=== PATIENT | female | born 1960 | race Caucasian/White ===

== ENCOUNTER 2022-06-07 11:57 | Emergency (ER) | payer OTHER ==
[~2022-06-07] VITALS: Ht 167.6 cm; Wt 80.3 kg
[2022-06-07 12:24] VITALS: BP_SYST 145
== END 2022-06-07 14:17 | disposition home or self-care (01) ==
LOC: SED 11:57
DX: H53.8 Other visual disturbances (principal); Z79.899 Other long term (current) drug therapy
CPT/HCPCS: 93005; 93880; 99284